=== PATIENT | female | born 1990 | race Caucasian/White ===

== ENCOUNTER 2018-08-06 10:32 | Emergency (ER) | payer BC ==
[2018-08-06 10:38] VITALS: BP 123/94
--- NOTE | 2018-08-06 11:31 | EDPHY ---
H & P Stated Complaint: st fever x 2 days Source: Patient Exam Limitations: No limitations - Personal History LMP (Females 10-55): IUD In Place Current Tetanus Diphtheria and Acellular Pertussis (TDAP): Yes - Medical/Surgical History Hx Asthma: No Hx Chronic Respiratory Disease: No Hx Diabetes: No Hx Cardiac Disease: No Hx Renal Disease: No Hx Cirrhosis: No Hx Alcoholism: No Hx HIV/AIDS: No Hx Splenectomy or Spleen Trauma: No Other PMH: denies - Social History Smoking Status: Current every day smoker Time Seen by Provider: 08/06/18 11:30 HPI/ROS: HPI: This is a 28-year-old female who presents with Chief Complaint: Sore throat and fever x2 days Location: Throat Quality: Sore Duration: 2 days Signs and Symptoms: no fever, no nausea, no vomiting, no diarrhea, no urinary symptoms, no chest pain, no shortness of breath, no wheezing, no cough, no neck stiffness, no joint pain, + swollen glands, no ear pain, no rash Timing: Acute, constant Severity: Moderate Context: Patient is generally healthy, has no primary care provider, works at the local senior living, the presents with complaints of 2 day history of sore throat and fever accompanied by swollen glands. Patient has been using over-the- counter antipyretics with transient relief of fever. She reports discomfort with eating and swallowing certain foods but she is trying to consume sufficient amounts of liquids per day. She is scheduled to return to work on Thursday. Her boyfriend is complaining of a sore throat x1 day. Denies drooling , jaw pain, trismus. Modifying Factors: See above Comment: ROS: A comprehensive 10 system review of systems is otherwise negative aside from elements mentioned in the history of present illness. MEDICAL/SURGICAL/SOCIAL HISTORY: Medical history: Generally healthy. Does not take any regular medications. IUD in place. Surgical history: Denies Social history: Current every day smoker. Family history noncontributory. CONSTITUTIONAL: Polite and cooperative, , adult white female awake and alert, no obvious distress HEENT: Atraumatic and normocephalic, PERRL, EOMI. Nares patent; no rhinorrhea; no nasal mucosal edema. Tympanic membranes clear. Oropharynx clear, tonsils 2 + hypertrophy with moderate erythema and exudate; uvula midline; halitosis; moist pink mucosa. Airway patent. + spotty anterior cervical lymphadenopathy. No meningismus. Cardiovascular: Normal S1/S2, regular rate, regular rhythm, without murmur rub or gallop. PULMONARY/CHEST: Symmetrical and nontender. Clear to auscultation bilaterally. Good air movement. No accessory muscle usage. ABDOMEN: Soft, nondistended, nontender, no rebound, no guarding, no peritoneal signs, no masses or organomegaly. No CVAT. EXTREMITIES: 2/2 pulses, strength 5/5, no deformities, no clubbing, no cyanosis or edema. NEUROLOGICAL: no focal neuro deficits. GCS 15. Speech is clear. SKIN: Warm and dry, no erythema. no rash. Good capillary refill. (Liliane Santacruz) Constitutional: Initial Vital Signs Temperature (C) 36.9 C 08/06/18 10:36 Heart Rate 97 08/06/18 10:36 Respiratory Rate 16 08/06/18 10:36 Blood Pressure 123/94 H 08/06/18 10:36 O2 Sat (%) 97 08/06/18 10:36 O2 Delivery Mode Room Air Allergies/Adverse Reactions: No Known Allergies Allergy (Unverified 08/06/18 10:35) Home Medications: Medication Instructions Recorded Amoxicillin/Clavulanate Pot 875 mg PO BID #20 tab 08/06/18 [Augmentin 875 MG TAB (*)] Dexamethasone [Decadron 2 MG (*)] 10 mg PO ONCE #5 tab 08/06/18 Paraguard Iud 08/06/18 Seroquel 08/06/18 Medical Decision Making ED Course/Re-evaluation: Vital signs reviewed and stable upon arrival. No signs of abscess, meningitis, dehydration Rapid strep test positive Patient given a prescription for Augmentin and Decadron 10 mg This patient was seen under the supervision of my secondary supervising physician. I evaluated care for this patient independently. Discussed this patient with Dr. Villa who did not see the patient. (Liliane Santacruz) The patient was evaluated and managed by the physician assistant laboratory director. I have reviewed this chart and I agree with the findings and plan of care as documented , as indicated by my signature. I am the secondary supervising physician. ( Steph Villa) Differential Diagnosis: Adult fever including but not limited to viral syndromes including influenza, strep tonsillitis, viral pharyngitis, infectious mononucleosis. (Liliane Santacruz) Departure - Departure Disposition: Home, Routine, Self-Care Clinical Impression: Streptococcal tonsillopharyngitis Condition: Good Instructions: Strep Throat (ED) Additional Instructions: Consume a minimum of 8-10 glasses of water or electrolyte fluid replacement drinks that include Gatorade, Powerade, Pedialyte. Eat a bland diet for the next 48 hours and then slowly advance as tolerated. Take antibiotic as directed times 10 days. Do not skip a dose. Take Decadron 10 mg x1. Take Tylenol 650 mg every 4 hr and or ibuprofen 600 mg every 8 hr as needed for pain, fever. Return to the ER immediately if you cannot swallow, have drooling, fevers, neck stiffness, cannot open your jaw, or any other symptoms that concern you. Referrals: [facility],. [Clinic] - As per Instructions Prescriptions: Amoxicillin/Clavulanate Pot [Augmentin 875 MG TAB (*)] 875 mg PO BID #20 tab Dexamethasone [Decadron 2 MG (*)] 10 mg PO ONCE #5 tab
== END 2018-08-06 11:52 | disposition home or self-care (01) ==
DX: J03.00 Acute streptococcal tonsillitis, unspecified (principal)

== ENCOUNTER 2018-08-25 20:06 | Emergency (ER) | payer BC ==
--- NOTE | 2018-08-25 20:12 | EDPHY ---
H & P Smoking Status: Current every day smoker Time Seen by Provider: 08/25/18 20:06 HPI/ROS: CHIEF COMPLAINT: Suicidal ideation HISTORY OF PRESENT ILLNESS: EMS was toned for abdominal pain, the patient says she has to roommate to call for abdominal pain but he does not know the real reason. She has been increasingly suicidal over the past 5 days. She was hospitalized for suicidal ideation and [place] about 6 months ago. Alcohol tonight but no other drugs, no overdose or self injury. She has a plan to drive her car into things. REVIEW OF SYSTEMS: Eye: no change in vision ENT: no sore throat Cardiac: no chest pain or syncope Pulmonary: no cough or SOB Abdomen: no vomiting, diarrhea, abdominal pain Musculoskeletal: no back pain Skin: no rash Neuro: no headache Constitutional: no fever : no urinary symptoms A comprehensive 10 point review of systems is otherwise negative aside from elements mentioned in the history of present illness. PAST MEDICAL HISTORY: Depression and anxiety Social history: Recent alcohol General Appearance: Alert and conversant, cooperative. Eyes: No scleral icterus. ENT, Mouth: Normal mucous membranes. Respiratory: Normal respiratory effort, breath sounds equal, lungs are clear to auscultation. Cardiovascular: Regular rate and rhythm. Gastrointestinal: Abdomen is soft and non tender. Neurological: Alert, face symmetric, normal motor and sensory in extremities. Skin: No laceration or abrasions. Musculoskeletal: No peripheral edema. Psychiatric: Depressed affect, suicidal ideation as above. Emergency Department course/MDM: Placed on a mental health hold by myself. Plan for alcohol level, screening labs and urine, psychiatric evaluation when not intoxicated. signed out to Dr. Armas with plan for mental health evaluation when no longer intoxicated. 1609: Mental evaluation completed, patient not currently suicidal, mental health hold vacated by Dr. Caesar Lyles pre owned sales consultant psychiatrist. (Rene Key) Constitutional: Initial Vital Signs Temperature (C) 36.8 C 08/25/18 20:11 Heart Rate 120 H 08/25/18 20:11 Respiratory Rate 20 08/25/18 20:11 Blood Pressure 149/102 H 08/25/18 20:11 O2 Sat (%) 98 08/25/18 20:11 O2 Delivery Mode Room Air Allergies/Adverse Reactions: No Known Allergies Allergy (Unverified 08/25/18 20:18) Home Medications: Medication Instructions Recorded Paraguard Iud 08/06/18 Seroquel 08/06/18 Medical Decision Making ED Course/Re-evaluation: 0700AM: No acute events overnight. Patient resting. Signed over to Dr. Schaefer ( [facility]) - Data Points Laboratory Results: Laboratory Results 08/25/18 20:10 08/25/18 20:10 Medications Given: Discontinued Medications Ibuprofen (Motrin) 600 mg PO EDNOW ONE Stop: 08/26/18 05:50 Last Admin: 08/26/18 05:50 Dose: 600 mg Lorazepam (Ativan) 1 mg PO ONCE ONE Stop: 08/26/18 01:57 Last Admin: 08/26/18 01:59 Dose: 1 mg Lorazepam (Ativan) 1 mg PO ONCE ONE Stop: 08/26/18 03:19 Last Admin: 08/26/18 03:23 Dose: 1 mg Lorazepam (Ativan) 1 mg PO EDNOW ONE Stop: 08/26/18 09:01 Last Admin: 08/26/18 09:25 Dose: 1 mg Lorazepam (Ativan Injection) 1 mg IM EDNOW ONE Stop: 08/26/18 10:13 Last Admin: 08/26/18 10:20 Dose: 1 mg Nicotine (Nicoderm Cq) 21 mg TD EDNOW ONE Stop: 08/26/18 08:21 Last Admin: 08/26/18 08:24 Dose: 21 mg Ondansetron HCl (Zofran Odt) 4 mg PO EDNOW ONE Stop: 08/25/18 21:02 Last Admin: 08/25/18 21:05 Dose: 4 mg Ondansetron HCl (Zofran Odt) 4 mg PO EDNOW ONE Stop: 08/26/18 01:57 Last Admin: 08/26/18 01:59 Dose: 4 mg Departure - Departure Disposition: Home, Routine, Self-Care Clinical Impression: Alcoholic intoxication Qualifiers: Complication of substance-induced condition: uncomplicated Qualified Code(s): F10.920 - Alcohol use, unspecified with intoxication, uncomplicated Condition: Good Instructions: Alcohol Intoxication (ED) Referrals: Rubens Schmidt MD [Medical Doctor] - As per Instructions
[2018-08-25 20:30] LABS: PLATELET COUNT 427 10^3/uL (150-400)
[2018-08-25] MEDS ORDERED: ONDANSETRON DISINTEGRATING 4 MG TAB PO ONE (21:01)
[2018-08-26] MEDS ORDERED: ONDANSETRON DISINTEGRATING 4 MG TAB PO ONE (01:56)
[2018-08-26] MEDS ORDERED: LORazepam 1 MG TAB ONE (01:56)
[2018-08-26] MEDS ORDERED: ONDANSETRON DISINTEGRATING 4 MG TAB ONE (01:56)
[2018-08-26] MEDS ORDERED: LORazepam 1 MG TAB PO ONE ×3 (01:56→09:00)
[2018-08-26] MEDS ORDERED: IBUPROFEN 600 MG TAB PO ONE ×2 (05:47→05:49)
[2018-08-26] MEDS ORDERED: NICOTINE 21 MG/24 HR PATCH TD ONE (08:20)
[2018-08-26] MEDS ORDERED: LORazepam 2 MG/ML INJ IM ONE (10:12)
--- NOTE | 2018-08-26 16:36 | ASMTTLCEVL ---
TLC Evaluation - Basic Information Evaluation Start Date and 08/26/2018 01:00 PM Time Hospital Status Answers: M1 Hold 72-hr M1 Hold Start Date 08/26/2018 08:13 PM and Time Patient statement Notes: I decided to drink about 1 week ago. Im an alcoholic, and for 3 years now if I start drinking I end up in the hospital. Once I start drinking I cant stop, and I hate myself for it. I wanted to get into my car and start driving, but my roommates called 911 and bought me here. Im fine if I dont drink. Narrative Notes: PT is a 28 year old , employed, single female. PT reports she moved here 2 months ago with her boyfriend. She said her boyfriend is out of town and she was supposed to go fly to [place] yesterday to spend [place] with him, but she was in a black out. PT reported when she started drinking last she would drink a liter of vodka a day. Pt reports her boyfriend is out of town and as a result she states she feels more vulnerable. Pt also states that when she is menstruating it is more difficult to remain sober. Diagnosis History Notes: PT reports she has Borderline Personality Disorder, and Alcohol Dependence. Prior suicide attempts Notes: Denies, but said she will threaten suicide when she is drinking heavily. Prior hospitalizations Notes: 4x in [place] for similar behavior. Treatment Responses Notes: N/A History of violence Notes: Denied Therapist: No treatment since moving to [place]. Psychiatrist: No treatment since moving to [place]. Medications (name, dosage, route, freq uency) Notes: Seroquel 200mg HS, Gabepentin PRN for anxiety and back pain., PT said she stopped taking Zoloft when she moved here since she didnt have [place] Medicaid. Pt reports being off her medication for about 6 weeks. Allergies/Reaction Notes: Antabuse Sleep Notes: Good when she isnt drinking heavily, Seroquel helps. Appetite Notes: Good except last week not eating due to heavy drinking. Medical/Surgical history Notes: none Substance use history (frequency, intensity, his tory, duration) Notes: PT reported that she didnt start using alcohol regularly until age 20 and she has been struggling with bouts of binge drinking resulting in hospitalizations since then. PT said in her 20s she used marijuana, LSD. Alana and cocaine, but she has not sued any of those substances in many years. Family composition Notes: PT reported that her family lives in [place]. Parents are , 2 older sisters. Need for family Answers: No participation in patient's care Family psychiatric/substance abuse history Notes: PT reported that there is alcoholism on both side of the family. Developmental history Notes: PT reported all developmental milestones were normal. Abuse concerns Answers: None Marital status/children Notes: Never , no children. Living situation Notes: PT moved to [place] 2 months ago and is living with her boyfriend and 2 roommates. Sexual history/orientation Notes: Unable to assess. Peer support/family strengths Notes: PT said she doesnt have any friends yet I the [place] area. Limited support system. Pt reports she feels that AA has been helpful in the past. Education level/history Notes: PT said she graduated high schools and has some college. Work history Notes: PT is currently working on [place] at [employer] and states she likes her job, but she hasnt been there in 5 days and is unsure if she still has the job. Notes: None Legal Notes: Denied any legal problems. Mormon/Spiritual Notes: None that would intefere [facility]. Leisure Notes: Pt said she enjoys Art and writing. Collateral Notes: None Patient's strengths Answers: Artistic/Creative/Musical (Please select at least TWO strengths): Insightful TLC Evaluation - Mental Status Exam Appearance: Answers: Appropriate Eye Contact: Answers: Good/Direct Mood: Answers: Euthymic Affect: Answers: Appropriate Behavior: Answers: Cooperative Speech: Answers: Relevant Logical Clear Insight: Answers: Good Judgement: Answers: Poor Hallucinations: Answers: None Current Stage of Change Answers: Precontemplation Pt reported to have Answers: No suicidal/self-injuring ideation/behavior? Pt reported to be making Answers: No suicidal/self-injuring threats? Pt reported to have Answers: No aggression/assault ideation/behavior? Pt reported to be making Answers: No aggression/assault threats? Ideation/behavior is Answers: No chronic? History of Answers: Yes suicidal/self-injuring ideation, behavior, or threats? History of Answers: No aggressive/assaultive ideation, behavior, or threats? History of serious Answers: No physical harm to self/others while in treatment setting? TLC Evaluation - Suicide/Homicide Risk Suicide Risk Factors: Answers: Alcohol/Heavy Drug Use Cluster "B" D/O or Traits Homicide/violence risk Answers: None factors: Current Suicidal Answers: No Ideation? Current Suicide Ideation Pt states she often threatens suiicde when Frequency: intoxicated. Pt is denying SI now. Current Suicidal Ideation Answers: Yes in the Past 48 Hours? Current Suicidal Answers: No Ideation, Worst Ever? Suicide Internal Answers: Absence of Psychosis Protective Factors: Suicide External Answers: Other Notes: Unable to assess Protective Factors: Ranking of patient's Answers: Low suicidal risk: Ranking of patient's Answers: Low homicidal risk: TLC Evaluation - Wrap-up BDI Total Score: 9 BDI Question #2 Score: 0 BDI Question #9 Score: 0 BSS Total Score: 0 AXIS I Diagnosis (include DSM-V and ICD-10 codes), must also be entered in [employer], which is the source of truth. Notes: Alcohol Intoxication, with use disorder, moderate/severe 303.00 (F10.229) In consultation with [facility] ED physician, Wilton Mondragon MD, and on-call psychiatrist, Caesar Lyles MD, both concurred that pt does not appear to meet 27-65 criteria requiring psychiatric hospitalization as pt does not appear to be an imminent risk of harm to self/others/gravely disabled due to a mental illness condition. Evaluation End Date and 08/26/2018 04:30 PM Time (HH:MM): Date Signed: 08/26/2018 04:35 PM Electronically Signed By:Carlota Mroa
--- NOTE | 2018-08-26 16:37 | ASMTTCLDSP ---
TLC Discharge Disposition If Answers: Yes DISCHARGED: Patient/family given suicide hotline info & SAMHSA brochure? Disposition Notes: Notes: Pt was given resources for MHP and AA. Discharge Concerns/Recommendations: Notes: In consultation with [facility] ED physician, Wilton Mondragon MD, and on-call psychiatrist, Caesar Lyles MD, both concurred that pt does not appear to meet 27-65 criteria requiring psychiatric hospitalization as pt does not appear to be an imminent risk of harm to self/others/gravely disabled due to a mental illness condition. Psychiatrist vacating M1 Caesar Lyles MD Hold: Date and time M1 hold 08/26/2018 04:00 PM vacated (time format is hh:mm): Type of Hold: Answers: M1/72-hour Hold Date Signed: 08/26/2018 04:37 PM Electronically Signed By:Carlota Mora
[2018-08-26 17:09] VITALS: BP 150/100
== END 2018-08-26 17:00 | disposition home or self-care (01) ==
LOC: EDUNIT# → EEVIPCON 20:06
DX: F10.920 Alcohol use, unspecified with intoxication, uncomplicated (principal); F41.8 Other specified anxiety disorders
CPT/HCPCS: 80305; 96374; G0480; J2060

== ENCOUNTER 2018-12-17 12:07 | Emergency (ER) | payer SELFPAY ==
--- NOTE | 2018-12-17 12:32 | EDPHY ---
H & P Stated Complaint: wants to detox from ETOH, binge drinking the last 2 days Time Seen by Provider: 12/17/18 12:24 HPI/ROS: HPI: This is a 28-year-old female who presents with Chief Complaint: Alcohol abuse, 2 days of bingeing, requesting detox Location: Body Quality: Alcohol intoxication Duration: 2 days Signs and Symptoms: no fever, + nausea, no vomiting, no hematemesis, no blood in stool, no abdominal bloating, no diarrhea, no back pain, no urinary symptoms , no vaginal bleeding/discharge, no indigestion, no chest pain, no shortness of breath Timing: Acute on chronic Severity: Moderate Context: Patient reports that she has drank approximately 7 L of vodka in the last 2 days. Her last drink was approximately 1 hr prior to arrival. She reports that the last time she went to alcohol detox was approximately 2 years ago in [place]. She recently was sober for 90 days but started drinking 2 days ago. She is requesting alcohol detox as she has a history of alcohol withdrawal seizures. She has never required hospitalization for her alcohol withdrawal seizures. She is an employee at the [employer]. Chart review shows that she was seen in this emergency room for alcohol intoxication and suicidal ideation in July. Modifying Factors: Comment: ROS: A comprehensive 10 system review of systems is otherwise negative aside from elements mentioned in the history of present illness. MEDICAL/SURGICAL/SOCIAL HISTORY: Medical history: alcohol abuse, SI admit, depression, borderline personality disorder. Merina IUD. Surgical history: Denies Social history: Current every day tobacco user Family history noncontributory. CONSTITUTIONAL: Intoxicated, polite, cooperative adult white female, awake and alert, no obvious distress HEENT: Atraumatic and normocephalic, PERRL, EOMI. Nares patent; no rhinorrhea; no nasal mucosal edema. Tympanic membranes clear. Oropharynx clear, no exudate and moist pink mucosa. Airway patent. No lymphadenopathy. No meningismus. Cardiovascular: Normal S1/S2, regular rate, regular rhythm, without murmur rub or gallop. PULMONARY/CHEST: Symmetrical and nontender. Clear to auscultation bilaterally. Good air movement. No accessory muscle usage. ABDOMEN: Soft, nondistended, nontender, no rebound, no guarding, no peritoneal signs, no masses or organomegaly. No CVAT. EXTREMITIES: 2/2 pulses, strength 5/5, no deformities, no clubbing, no cyanosis or edema. NEUROLOGICAL: no focal neuro deficits. GCS 15. SKIN: Warm and dry, no erythema. no rash. Good capillary refill. Source: Patient Exam Limitations: No limitations - Personal History LMP (Females 10-55): IUD In Place - Medical/Surgical History Hx Asthma: No Hx Chronic Respiratory Disease: No Hx Diabetes: No Hx Cardiac Disease: No Hx Renal Disease: No Hx Cirrhosis: No Hx Alcoholism: No Hx HIV/AIDS: No Hx Splenectomy or Spleen Trauma: No Other PMH: alcohol abuse, SI admit, depression - Social History Smoking Status: Current every day smoker Constitutional: Initial Vital Signs Temperature (C) 36.8 C 12/17/18 12:09 Heart Rate 112 H 12/17/18 12:09 Respiratory Rate 18 12/17/18 12:09 Blood Pressure 135/88 H 12/17/18 12:09 O2 Sat (%) 94 12/17/18 12:09 O2 Delivery Mode Room Air Allergies/Adverse Reactions: No Known Allergies Allergy (Verified 12/17/18 12:09) Home Medications: Medication Instructions Recorded Seroquel 08/06/18 Mirena 12/17/18 Medical Decision Making ED Course/Re-evaluation: Vital signs reviewed and show mild tachycardia upon arrival. Patient is clearly intoxicated. Given p.o. Librium 25 mg, p.o. Zofran 4 mg and p.o. Protonix 40 mg Case management consult who called [facility] and advised that they have an open bed that require laboratory studies and urine drug screen 1450: ETOH= 262; leukocytosis noted likely reactive, no anemia, no platelet dysfunction, no acute kidney injury, no electrolyte imbalance, no 1455: Notified by tech that patient is requesting IV fluids and antiemetics. 1 L normal saline and IV promethazine given 1500: Notified by case management that she faxed the laboratory results to [facility]. 1528: Notified by case management that patient has been accepted for transfer to [facility]. Boyfriend does not feel comfortable transporting patient. Will transport via [facility]. 1700: CIWA protocol initiated as patient has been here several hours. Given p.o. Librium 50 mg. No signs of delirium tremens, withdrawal seizures. 1730: Nurse to nurse report 0: [facility] will plan to arrive in transport patient to [facility]. This patient was seen under the supervision of my secondary supervising physician. I evaluated and cared for this patient independently. Differential Diagnosis: Altered mental status including but not limited to hypoglycemia, infectious process, electrolyte abnormality, head injury and intoxicants. - Data Points Laboratory Results: Laboratory Results 12/17/18 14:16 12/17/18 14:16 12/17/18 12/17/18 12/17/18 14:16 14:16 14:16 WBC 16.05 10^3/uL H 10^3/uL (3.80-9.50) RBC 5.30 10^6/uL 10^6/uL (4.18-5.33) Hgb 14.9 g/dL g/dL (12.6-16.3) Hct 45.2 % % (38.0-47.0) MCV 85.3 fL fL (81.5-99.8) MCH 28.1 pg pg (27.9-34.1) MCHC 33.0 g/dL g/dL (32.4-36.7) RDW 12.3 % % (11.5-15.2) Plt Count 429 10^3/uL H 10^3/uL (150-400) MPV 8.9 fL fL (8.7-11.7) Neut % (Auto) 82.4 % H % (39.3-74.2) Lymph % (Auto) 15.3 % % (15.0-45.0) [place] % (Auto) 1.7 % L % (4.5-13.0) Eos % (Auto) 0.0 % L % (0.6-7.6) Baso % (Auto) 0.2 % L % (0.3-1.7) Nucleat RBC Rel Count 0.0 % % (0.0-0.2) Absolute Neuts (auto) 13.22 10^3/uL H 10^3/uL (1.70-6.50) Absolute Lymphs (auto) 2.46 10^3/uL 10^3/uL (1.00-3.00) Absolute Monos (auto) 0.27 10^3/uL L 10^3/uL (0.30-0.80) Absolute Eos (auto) 0.00 10^3/uL L 10^3/uL (0.03-0.40) Absolute Basos (auto) 0.04 10^3/uL 10^3/uL (0.02-0.10) Absolute Nucleated RBC 0.00 10^3/uL 10^3/uL (0-0.01) Immature Gran % 0.4 % % (0.0-1.1) Immature Gran # 0.06 10^3/uL 10^3/uL (0.00-0.10) Sodium 142 mEq/L mEq/L (135-145) Potassium 4.3 mEq/L mEq/L (3.5-5.2) Chloride 98 mEq/L mEq/L (97-110) Carbon Dioxide 23 mEq/l mEq/l (22-31) Anion Gap 21 mEq/L H mEq/L (6-14) BUN 13 mg/dL mg/dL (7-23) Creatinine 0.8 mg/dL mg/dL (0.6-1.0) Estimated GFR > 60 Glucose 101 mg/dL H mg/dL (70-100) Calcium 9.2 mg/dL mg/dL (8.5-10.4) Beta HCG, Qual NEGATIVE Ethyl Alcohol 262 mg/dL H mg/dL (0-10) Medications Given: Discontinued Medications Chlordiazepoxide HCl (Librium) 25 mg PO EDNOW ONE Stop: 12/17/18 12:36 Last Admin: 12/17/18 13:20 Dose: 25 mg Sodium Chloride (Ns) 1,000 mls @ 0 mls/hr IV EDNOW ONE; Wide Open PRN Reason: Protocol Stop: 12/17/18 14:56 Last Admin: 12/17/18 14:59 Dose: 1,000 mls Ondansetron HCl (Zofran Odt) 4 mg PO EDNOW ONE Stop: 12/17/18 12:35 Last Admin: 12/17/18 13:20 Dose: 4 mg Pantoprazole Sodium (Protonix) 40 mg PO EDNOW ONE Stop: 12/17/18 12:35 Last Admin: 12/17/18 13:19 Dose: 40 mg Promethazine HCl (Phenergan) 12.5 mg IVP ONCE ONE Stop: 12/17/18 15:08 Last Admin: 12/17/18 15:07 Dose: 12.5 mg Departure - Departure Disposition: Other Psych, Not [place] Clinical Impression: Alcoholic intoxication without complication, Alcohol abuse with alcohol- induced disorder Condition: Fair Instructions: Abuse of Alcohol (ED), Alcohol Use Disorder (ED)
[2018-12-17] MEDS ORDERED: ONDANSETRON DISINTEGRATING 4 MG TAB PO ONE (12:34)
[2018-12-17] MEDS ORDERED: PANTOPRAZOLE SODIUM 40 MG TAB PO ONE (12:34)
[2018-12-17] MEDS ORDERED: chlordiazePOXIDE 25 MG CAP PO ONE ×2 (12:35→17:06)
[2018-12-17 14:24] LABS: PLATELET COUNT 429 10^3/uL (150-400)
[2018-12-17] MEDS ORDERED: NS 1,000 ML IV ONE (14:55)
[2018-12-17] MEDS ORDERED: PROMETHAZINE HCL 25 MG/ML INJ ONE (15:01)
[2018-12-17] MEDS ORDERED: PROMETHAZINE HCL 25 MG/ML INJ IVP ONE (15:07)
--- NOTE | 2018-12-17 16:04 | ASMTCMCOM ---
CM Note CM Note Notes: Assistance requested by NAILA John. Pt in FED after binge drinking for the last two days. Pt was last in the ED in July for ETOH and SI. She reported that she has a history of ETOH related seizures and emphasized that she cannot detox without medications. She denied current SI. She is accompanied by her partner, Good who stated that he was not in town the last time this happened and he does not know where she was taken for detox. Pt stated that she is not currently interested in treatment and would like to go somewhere for detox only. According to [facility] records pt. reported several psychiatric hospitalizations and a significant HX of ETOH abuse and prior DX of Borderline Personality disorder. Referral made to [facility] for detox only. Pt. accepted, N2N scheduled at 5:30PM, [facility] to arrive for transport at 7:30PM. Date Signed: 12/17/2018 04:02 PM Electronically Signed By:Tiesha Angel LCSW
[2018-12-17] MEDS ORDERED: LORazepam 1 MG TAB PO PRN (17:01)
[2018-12-17] MEDS ORDERED: LORazepam 2 MG/ML INJ IVP PRN (17:01)
[2018-12-17] MEDS ORDERED: IBUPROFEN 600 MG TAB PO ONE (17:46)
[2018-12-17 18:20] VITALS: BP 125/78
[2018-12-17] MEDS ORDERED: NICOTINE 21 MG/24 HR PATCH TD ONE (18:27)
== END 2018-12-17 19:56 ==
DX: F10.120 Alcohol abuse with intoxication, uncomplicated (principal); E86.9 Volume depletion, unspecified
CPT/HCPCS: 80305; 96374; G0480; J2550

== ENCOUNTER 2019-01-06 20:18 | Emergency (ER) | payer BC, OTHER ==
--- NOTE | 2019-01-06 20:30 | EDPHY ---
H & P Smoking Status: Heavy smoker Time Seen by Provider: 01/06/19 20:29 HPI/ROS: CHIEF COMPLAINT: Intoxicated and suicidal HISTORY OF PRESENT ILLNESS: Brought in by boyfriend, previous hospitalization at [facility] for suicidality. 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 Drinking more alcohol, patient admits to vodka. Yesterday the boyfriend had take a bottle of Seroquel out of her hand because she tried to take the whole thing. Patient admits to suicidality. She is pretty intoxicated. She denies medical complaints except for nausea and vomiting. REVIEW OF SYSTEMS: Eye: no change in vision ENT: no sore throat Cardiac: no chest pain or syncope Pulmonary: no cough or SOB Abdomen: Chronic pelvic pain recently got an IUD Musculoskeletal: no back pain Skin: no rash Neuro: no headache Constitutional: no fever : no urinary symptoms A comprehensive 10 point review of systems is otherwise negative aside from elements mentioned in the history of present illness. PAST MEDICAL HISTORY: Depression anxiety, hospitalized in [place] last summer. Social history: Recent alcohol General Appearance: Patient is sleepy but awakens to voice. Speech slightly slurred. Eyes: No scleral icterus. ENT, Mouth: Normal mucous membranes. Respiratory: Normal respiratory effort, breath sounds equal, lungs are clear to auscultation. Cardiovascular: Regular rate and rhythm. Gastrointestinal: Abdomen is soft and non tender. Neurological: Sleepy but awakens to voice, follows commands and moves extremities. Skin: Warm and dry, no rashes. Musculoskeletal: No peripheral edema. Psychiatric: Depressed affect, admits suicidal ideation with plan to overdose, admits recent alcohol intoxication. Emergency Department course/MDM: Placed on mental incapacity hold for alcohol ingestion and clinical intoxication. Screening psychiatric labs. Serial exam planned. 2148: Ethanol 343, serial exams plan. Signed to Cristal with plan as above. (Rene Key) 5:11 a.m.- Patient now awake and alert no longer clinically intoxicated. She tells me that she does not feel suicidal. She says that often times when she drinks she does feel this way however now has no thoughts of hurting herself. She is complaining of a headache and generally feels dehydrated. [facility] and she would like to do this. I will send her with a Librium prepack as she does have a history of alcohol withdrawals. (Sakina Bob) Constitutional: Initial Vital Signs Temperature (C) 36.9 C 01/06/19 20:23 Heart Rate 117 H 01/06/19 20:23 Respiratory Rate 16 01/06/19 20:23 Blood Pressure 147/115 H 01/06/19 20:23 O2 Sat (%) 93 01/06/19 20:23 O2 Delivery Mode Room Air O2 (L/minute) 2 Allergies/Adverse Reactions: No Known Allergies Allergy (Verified 12/17/18 12:09) Home Medications: Medication Instructions Recorded QUEtiapine FUMARATE [Seroquel 200 400 mg PO HS 08/06/18 mg (*)] Sertraline HCl [Zoloft 100mg (*)] 200 mg PO HS 12/17/18 Ritalin 10mg (*) 01/06/19 - Data Points Laboratory Results: Laboratory Results 01/06/19 21:08 01/06/19 21:08 01/06/19 01/06/19 01/06/19 21:08 21:08 21:08 WBC 9.88 10^3/uL H 10^3/uL (3.80-9.50) RBC 5.15 10^6/uL 10^6/uL (4.18-5.33) Hgb 14.4 g/dL g/dL (12.6-16.3) Hct 43.4 % % (38.0-47.0) MCV 84.3 fL fL (81.5-99.8) MCH 28.0 pg pg (27.9-34.1) MCHC 33.2 g/dL g/dL (32.4-36.7) RDW 13.1 % % (11.5-15.2) Plt Count 328 10^3/uL 10^3/uL (150-400) MPV 9.0 fL fL (8.7-11.7) Neut % (Auto) 59.2 % % (39.3-74.2) Lymph % (Auto) 36.0 % % (15.0-45.0) [place] % (Auto) 3.7 % L % (4.5-13.0) Eos % (Auto) 0.4 % L % (0.6-7.6) Baso % (Auto) 0.3 % % (0.3-1.7) Nucleat RBC Rel Count 0.0 % % (0.0-0.2) Absolute Neuts (auto) 5.84 10^3/uL 10^3/uL (1.70-6.50) Absolute Lymphs (auto) 3.56 10^3/uL H 10^3/uL (1.00-3.00) Absolute Monos (auto) 0.37 10^3/uL 10^3/uL (0.30-0.80) Absolute Eos (auto) 0.04 10^3/uL 10^3/uL (0.03-0.40) Absolute Basos (auto) 0.03 10^3/uL 10^3/uL (0.02-0.10) Absolute Nucleated RBC 0.00 10^3/uL 10^3/uL (0-0.01) Immature Gran % 0.4 % % (0.0-1.1) Immature Gran # 0.04 10^3/uL 10^3/uL (0.00-0.10) Sodium 143 mEq/L mEq/L (135-145) Potassium 3.9 mEq/L mEq/L (3.5-5.2) Chloride 98 mEq/L mEq/L (97-110) Carbon Dioxide 28 mEq/l mEq/l (22-31) Anion Gap 17 mEq/L H mEq/L (6-14) BUN 5 mg/dL L mg/dL (7-23) Creatinine 0.7 mg/dL mg/dL (0.6-1.0) Estimated GFR > 60 Glucose 111 mg/dL H mg/dL (70-100) Calcium 9.1 mg/dL mg/dL (8.5-10.4) Beta HCG, Qual NEGATIVE Salicylates < 1.0 mg/dL L mg/dL (2.0-20.0) Acetaminophen < 10 mcg/mL L mcg/mL (10-30) Ethyl Alcohol 323 mg/dL H mg/dL (0-10) Medications Given: Discontinued Medications Sodium Chloride (Ns) 1,000 mls @ 0 mls/hr IV EDNOW ONE; Wide Open PRN Reason: Protocol Stop: 01/06/19 20:42 Last Admin: 01/06/19 22:20 Dose: 1,000 mls Ibuprofen (Motrin) 400 mg PO EDNOW ONE Stop: 01/07/19 04:49 Last Admin: 01/07/19 04:50 Dose: 400 mg Departure - Departure Disposition: Home, Routine, Self-Care Clinical Impression: Alcoholic intoxication Qualifiers: Complication of substance-induced condition: uncomplicated Qualified Code(s): F10.920 - Alcohol use, unspecified with intoxication, uncomplicated Condition: Good Instructions: Alcohol Intoxication (ED) Referrals: Carlos Corley MD [Medical Doctor] - As per Instructions [facility],. [Clinic] - As per Instructions
[2019-01-06] MEDS ORDERED: NS 1,000 ML IV ONE (20:41)
[2019-01-06 21:18] LABS: PLATELET COUNT 328 10^3/uL (150-400)
[2019-01-07] MEDS ORDERED: IBUPROFEN 200 MG TAB PO ONE (04:48)
[2019-01-07] MEDS ORDERED: chlordiazePOXIDE 25 MG CAP PO ONE (05:11)
[2019-01-07] MEDS ORDERED: CHLORDIAZEPOXIDE 25MG PREPK#6 BTL TAKEHOME ONE (05:11)
[2019-01-07 05:33] VITALS: BP 131/97
== END 2019-01-07 06:00 | disposition home or self-care (01) ==
DX: F10.129 Alcohol abuse with intoxication, unspecified (principal); R45.851 Suicidal ideations; F41.8 Other specified anxiety disorders
CPT/HCPCS: G0480